=== PATIENT | female | born 1995 | race African-American/Black ===

== ENCOUNTER 2024-07-11 18:19 | Emergency (ER) | payer OTHER ==
[~2024-07-11] VITALS: Ht 172.7 cm; Wt 70.0 kg
[2024-07-11 18:26] VITALS: O2SAT 98
[2024-07-11] MEDS: SODIUM CHLORIDE 0.9% (SEPSIS BOLUS) IV ONE (19:29)
[2024-07-11 19:43] LABS: BASOPHILS % 0.7 % (0.0-2.0); EOSINOPHILS % 0.1 % (0.0-5.0); HEMATOCRIT. 28.7 % (36.0-48.0); HEMOGLOBIN. 9.5 g/dL (12.0-16.0); LYMPHOCYTES % 21.3 % (20.0-50.0); MEAN CORPUSCULAR HEMOGLOBIN 27.5 pg (28.0-32.0); MEAN CORPUSCULAR HGB CONC 32.9 g/dL (31.0-37.0); MEAN CORPUSCULAR VOLUME 83.4 fL (81.0-99.0); MEAN PLATELET VOLUME 8.1 fl (7.4-10.4); MONOCYTES % 9.6 % (2.0-8.0); NEUTROPHILS % 68.3 % (40.0-76.0); PLATELET 457 x1000/uL (130-400); RED BLOOD CELL COUNT 3.45 mill/uL (4.2-5.4); RED CELL DISTRIBUTION WIDTH 14.2 % (11.6-14.6); WHITE BLOOD COUNT 4.9 x1000/uL (4.5-11.0)
[2024-07-11] MEDS: ACETAMINOPHEN 325MG TABLET PO ONE (19:43)
[2024-07-11] MEDS: METOCLOPRAMIDE HCL 10MG/2ML VIAL IV ONE (19:43)
[2024-07-11 19:57] LABS: HCG SCREEN NEGATIVE
[2024-07-11 19:59] LABS: CHLORIDE 99 mEq/L (98-107); SODIUM 131 mEq/L (136-145)
[2024-07-11 20:00] LABS: CALCIUM 9.3 mg/dL (8.7-10.4); CARBON DIOXIDE 20 mEq/L (21-32)
[2024-07-11 20:03] LABS: THYROID STIMULATING HORMONE 0.56 uIU/mL (0.55-4.78)
[2024-07-11 20:05] LABS: CREATININE 0.7 mg/dL (0.6-1.0); GLUCOSE 89 mg/dL (70-105)
[2024-07-11 20:25] LABS: TROPONIN I HIGH SENSITIVITY < 4 ng/L (3.0-34); UREA NITROGEN BLOOD < 5 mg/dL (9-23)
[2024-07-11] MEDS: ONDANSETRON HCL 4MG/2ML INJ IV ONE (22:07)
[2024-07-11] MEDS: SODIUM CHLORIDE 0.9% 1,000 ML IV ONE (23:13)
[2024-07-11 23:25] LABS: CLARITY URINE CLEAR (CLEAR); COLOR URINE YELLOW (YELLOW); GLUCOSE URINE NEGATIVE (NEGATIVE); KETONES URINE 2+ (NEGATIVE); LEUKOCYTE ESTERASE URINE NEGATIVE (NEGATIVE); NITRITE URINE NEGATIVE (NEGATIVE); OCCULT BLOOD URINE NEGATIVE (NEGATIVE); PH URINE 6.5 (4.5-8.0); PROTEIN URINE NEGATIVE (NEGATIVE); SPECIFIC GRAVITY URINE 1.006 (1.005-1.030)
[2024-07-12 01:10] LABS: ERYTHROCYTE SEDIMENTATION RATE 120 mm/hr (0-20)
[2024-07-12 01:51] LABS: BLOOD PARASITE NONE SEEN (NONE SEEN)
[2024-07-12 01:59] LABS: LACTATE DEHYDROGENASE 259 IU/L (120-246)
[2024-07-12 02:00] LABS: ALANINE AMINOTRANSFERASE 18 IU/L (10-49); ALBUMIN 3.2 g/dL (3.2-4.8); ASPARTATE AMINOTRANSFERASE 24 IU/L (<34); BILIRUBIN DIRECT 0.1 mg/dL (<=3.0); BILIRUBIN TOTAL 0.3 mg/dL (0.1-1.0); PROTEIN TOTAL 6.5 g/dL (6.0-8.3)
[2024-07-12] MEDS ORDERED: ACET-2708 MT (04:43)
[2024-07-12 04:57] VITALS: BP 99/63; PULSE 81; RESP 21; TEMP 37.1; O2SAT 99
[2024-07-12] MEDS ORDERED: IOHEXOL-300 100 ML BOTTLE ONE (06:47)
== END 2024-07-12 05:15 | disposition home or self-care (01) ==
LOC: ER 18:19 → CANBEDREQ 07-12 05:15 → ER 07-12 05:15
DX: R10.84 Generalized abdominal pain (principal); R50.9 Fever, unspecified; Z88.6 Allergy status to analgesic agent
CPT/HCPCS: 80048; 81003; 84703; 83880; 83605; 83690; 84443; 85025; 85651; 87040 ×2; 87086; 87207; 84484; 36415; 84145; 71045; 96361; 96374; 99285; 80076; 83615; 74177; J2765; J7030; Z7610 ×2; Q9967; J2405